=== PATIENT | female | born 1945 | race Caucasian/White ===

== ENCOUNTER 2019-12-07 16:00 | Emergency (ER) | payer MEDICARE, OTHER ==
--- NOTE | 2019-12-07 17:03 | EDM.PDOC ---
ED HPI GENERAL MEDICAL PROBLEM - General Chief Complaint: Cardiovascular Problem Stated Complaint: RAPID HEART BEATS LAST NIGHT Time Seen by Provider: 12/07/19 16:59 Source of Information: Reports: Patient, Other (Friend) History Limitations: Reports: No Limitations - History of Present Illness INITIAL COMMENTS - FREE TEXT/NARRATIVE: The patient states that she had an episode of palpitations last night and was encouraged to come to the emergency department today by a friend who told her that she should be "checked out" she is not currently complaining of palpitations or chest pain. She absolutely denies any chest pain. She states she is not on any medications and refuses to take any medications. She admits to having previous episodes of palpitations several weeks ago and episodes even before that. She denies having anxiety. No sweats. No shortness of breath. No recent fevers. Associated Symptoms: Denies: Confusion, Chest Pain, Cough, Diaphoresis, Fever/Chills, Nausea/Vomiting, Shortness of Breath, Syncope - Related Data Allergies Allergy/AdvReac Type Severity Reaction Status Date / Time codeine Allergy Nausea and Verified 12/07/19 17:05 Vomiting Sulfa (Sulfonamide Allergy Cannot Verified 12/07/19 17:05 Antibiotics) Remember tramadol Allergy Chest Verified 12/07/19 17:06 Tightness venom-honey bee Allergy Cannot Verified 12/07/19 17:05 [bee venom (honey bee)] Remember dexamethasone AdvReac Other Verified 12/07/19 17:06 Home Meds: Home Meds NK [No Known Home Meds] 12/07/19 [History] 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 Denies: Chest Pain, Dyspnea on Exertion Endocrine: Denies: Fatigue GI/Abdominal: Denies: Abdominal Pain : Reports: No Symptoms Skin: Denies: Cyanosis, Rash Neurological: Reports: No Symptoms Psychiatric: Reports: Anxiety ED EXAM, GENERAL - Physical Exam Exam: See Below Exam Limited By: No Limitations General Appearance: Alert, WD/WN Ears: Normal External Exam Throat/Mouth: Normal Inspection Head: Atraumatic, Normocephalic Neck: Normal Inspection, Supple Respiratory/Chest: No Respiratory Distress, Lungs Clear Cardiovascular: Normal Peripheral Pulses, Regular Rate, Rhythm, Other (While I was at bedside and the patient became somewhat agitated and was moving around I noted premature atrial contractions on the bedside monitor. There has been no PVCs or PACs noted on the twelve-lead EKG.) GI/Abdominal: Normal Bowel Sounds, Soft Extremities: Normal Inspection, Normal Range of Motion. No: Pedal Edema Neurological: Alert, Oriented, Normal Cognition Psychiatric: Anxious (Patient denies being anxious but had pressured speech when I first entered the room. She appears mildly agitated. I offered her medication to help her calm down and she refused.) EKG INTERPRETATION EKG Date: 12/07/19 Time: 17:45 Rhythm: NSR Rate (Beats/Min): 83 [place]: Normal P-Wave: Present ST-T: Normal Course - Vital Signs Text/Narrative:: Twelve-lead EKG, chest x-ray, all laboratory studies including troponin and electrolytes, are completely unremarkable. I feel the patient had premature atrial contraction while I was at her bedside. I have recommended she have fairly quick follow-up with primary care and consider having Holter monitoring performed. I did suggest that she have medication for anxiety and she has refused at this time. Last Recorded V/S: Last Vital Signs Temp 36.9 C 12/07/19 16:54 Pulse 88 12/07/19 18:18 Resp 16 12/07/19 18:18 BP 173/83 H 12/07/19 18:18 Pulse Ox 96 12/07/19 18:18 - Orders/Labs/Meds Orders: Active Orders 24 hr Category Date Time Status EKG Documentation Completion [RC] ASDIRECTED Care 12/07/19 17:00 Active Chest 2V [CR] Stat Exams 12/07/19 16:59 Taken EKG 12 Lead [EK] Urgent Ther 12/07/19 17:00 Ordered Labs: Laboratory Tests 12/07/19 12/07/19 12/07/19 Range/Units 17:02 17:09 17:09 WBC 6.4 (4.5-11.0) K/uL RBC 4.75 (3.30-5.50) M/uL Hgb 12.7 (12.0-15.0) g/dL Hct 40.1 (36.0-48.0) % MCV 84 (80-98) fL MCH 27 (27-31) pg MCHC 32 (32-36) % Plt Count 260 (150-400) K/uL PT (9.5-12.0) sec INR (0.80-1.20) ABG Hemoglobin 13.4 (12.0-16.0) g/dL ABG Oxyhemoglobin 74.0 % ABG Carboxyhemoglobin 1.1 (0.0-1.6) % ABG Methemoglobin 0.8 % VBG pH 7.426 (7.350-7.450) VBG pCO2 37.7 mm/Hg VBG pO2 42.5 mm/Hg VBG HCO3 24.3 mmol/L VBG Total CO2 21.6 mmol/L VBG O2 Saturation 75.4 VBG O2 Content 13.9 %vol VBG Base Excess 0.7 mm/L O2 Delivery Device Room air Sodium (140-148) mmol/L Potassium (3.6-5.2) mmol/L Chloride (100-108) mmol/L Carbon Dioxide (21-32) mmol/L Anion Gap (5.0-14.0) mmol/L BUN (7-18) mg/dL Creatinine (0.6-1.0) mg/dL Est Cr Clr Drug Dosing mL/min Estimated GFR (MDRD) (>60) Glucose (74-106) mg/dL Lactic Acid (0.4-2.0) mmol/L Calcium (8.5-10.1) mg/dL Total Bilirubin (0.2-1.0) mg/dL AST (15-37) U/L ALT (12-78) U/L Alkaline Phosphatase (46-116) U/L Troponin I < 0.017 (0.000-0.056) ng/mL Total Protein (6.4-8.2) g/dL Albumin (3.4-5.0) g/dL Globulin (2.3-3.5) g/dL Albumin/Globulin Ratio (1.2-2.2) Urine Color (YELLOW) Urine Appearance (CLEAR) Urine pH (5.0-8.0) Ur Specific [place] (1.008-1.030) Urine Protein (NEGATIVE) mg/dL Urine Glucose (UA) (NEGATIVE) mg/dL Urine Ketones (NEGATIVE) mg/dL Urine Occult Blood (NEGATIVE) Urine Nitrite (NEGATIVE) Urine Bilirubin (NEGATIVE) Urine Urobilinogen (0.2-1.0) EU/dL Ur Leukocyte Esterase (NEGATIVE) Urine RBC (0-5) Urine WBC (0-5) Ur Epithelial Cells Amorphous Sediment Urine Bacteria Urine Mucus 12/07/19 12/07/19 12/07/19 Range/Units 17:09 17:09 17:09 WBC (4.5-11.0) K/uL RBC (3.30-5.50) M/uL Hgb (12.0-15.0) g/dL Hct (36.0-48.0) % MCV (80-98) fL MCH (27-31) pg MCHC (32-36) % Plt Count (150-400) K/uL PT 10.1 (9.5-12.0) sec INR 0.93 (0.80-1.20) ABG Hemoglobin (12.0-16.0) g/dL ABG Oxyhemoglobin % ABG Carboxyhemoglobin (0.0-1.6) % ABG Methemoglobin % VBG pH (7.350-7.450) VBG pCO2 mm/Hg VBG pO2 mm/Hg VBG HCO3 mmol/L VBG Total CO2 mmol/L VBG O2 Saturation VBG O2 Content %vol VBG Base Excess mm/L O2 Delivery Device Sodium 143 (140-148) mmol/L Potassium 3.8 (3.6-5.2) mmol/L Chloride 107 (100-108) mmol/L Carbon Dioxide 26 (21-32) mmol/L Anion Gap 9.7 (5.0-14.0) mmol/L BUN 18 (7-18) mg/dL Creatinine 0.8 (0.6-1.0) mg/dL Est Cr Clr Drug Dosing 42.97 mL/min Estimated GFR (MDRD) > 60 (>60) Glucose 93 (74-106) mg/dL Lactic Acid 0.5 (0.4-2.0) mmol/L Calcium 8.7 (8.5-10.1) mg/dL Total Bilirubin 0.3 (0.2-1.0) mg/dL AST 17 (15-37) U/L ALT 48 D (12-78) U/L Alkaline Phosphatase 101 (46-116) U/L Troponin I (0.000-0.056) ng/mL Total Protein 7.5 (6.4-8.2) g/dL Albumin 3.6 (3.4-5.0) g/dL Globulin 3.9 H (2.3-3.5) g/dL Albumin/Globulin Ratio 0.9 L (1.2-2.2) Urine Color (YELLOW) Urine Appearance (CLEAR) Urine pH (5.0-8.0) Ur Specific [place] (1.008-1.030) Urine Protein (NEGATIVE) mg/dL Urine Glucose (UA) (NEGATIVE) mg/dL Urine Ketones (NEGATIVE) mg/dL Urine Occult Blood (NEGATIVE) Urine Nitrite (NEGATIVE) Urine Bilirubin (NEGATIVE) Urine Urobilinogen (0.2-1.0) EU/dL Ur Leukocyte Esterase (NEGATIVE) Urine RBC (0-5) Urine WBC (0-5) Ur Epithelial Cells Amorphous Sediment Urine Bacteria Urine Mucus 12/06/ Range/Units 17:23 WBC (4.5-11.0) K/uL RBC (3.30-5.50) M/uL Hgb (12.0-15.0) g/dL Hct (36.0-48.0) % MCV (80-98) fL MCH (27-31) pg MCHC (32-36) % Plt Count (150-400) K/uL PT (9.5-12.0) sec INR (0.80-1.20) ABG Hemoglobin (12.0-16.0) g/dL ABG Oxyhemoglobin % ABG Carboxyhemoglobin (0.0-1.6) % ABG Methemoglobin % VBG pH (7.350-7.450) VBG pCO2 mm/Hg VBG pO2 mm/Hg VBG HCO3 mmol/L VBG Total CO2 mmol/L VBG O2 Saturation VBG O2 Content %vol VBG Base Excess mm/L O2 Delivery Device Sodium (140-148) mmol/L Potassium (3.6-5.2) mmol/L Chloride (100-108) mmol/L Carbon Dioxide (21-32) mmol/L Anion Gap (5.0-14.0) mmol/L BUN (7-18) mg/dL Creatinine (0.6-1.0) mg/dL Est Cr Clr Drug Dosing mL/min Estimated GFR (MDRD) (>60) Glucose (74-106) mg/dL Lactic Acid (0.4-2.0) mmol/L Calcium (8.5-10.1) mg/dL Total Bilirubin (0.2-1.0) mg/dL AST (15-37) U/L ALT (12-78) U/L Alkaline Phosphatase (46-116) U/L Troponin I (0.000-0.056) ng/mL Total Protein (6.4-8.2) g/dL Albumin (3.4-5.0) g/dL Globulin (2.3-3.5) g/dL Albumin/Globulin Ratio (1.2-2.2) Urine Color Yellow (YELLOW) Urine Appearance Clear (CLEAR) Urine pH 6.0 (5.0-8.0) Ur Specific [place] 1.025 (1.008-1.030) Urine Protein Negative (NEGATIVE) mg/dL Urine Glucose (UA) Negative (NEGATIVE) mg/dL Urine Ketones Negative (NEGATIVE) mg/dL Urine Occult Blood Negative (NEGATIVE) Urine Nitrite Negative (NEGATIVE) Urine Bilirubin Negative (NEGATIVE) Urine Urobilinogen 0.2 (0.2-1.0) EU/dL Ur Leukocyte Esterase Negative (NEGATIVE) Urine RBC 0-5 (0-5) Urine WBC 0-5 (0-5) Ur Epithelial Cells Few Amorphous Sediment Rare Urine Bacteria Not seen Urine Mucus Not seen Departure - Departure Time of Disposition: 18:26 Disposition: Home, Self-Care 01 Clinical Impression: Palpitations, Hypertension Instructions: Palpitations, [id number] Referrals: Estelita Cabrera PA [Primary Care Provider] - Forms: ED Department Discharge Additional Instructions: See your primary care practitioner as soon as possible. If you have prolonged episode of palpitations especially if it is associated with chest pain do return here for evaluation. Sepsis Event Note (ED) - Evaluation Sepsis Screening Result: No Definite Risk - Focused Exam Vital Signs: Vital Signs Temp Pulse Resp BP Pulse Ox 12/07/19 18:18 88 16 173/83 H 96 12/07/19 17:23 86 18 187/82 H 96 12/07/19 16:54 36.9 C 88 12 187/89 H 95 12/07/19 16:31 36.9 C 88 12 187/89 H 95 - My Orders Last 24 Hours: My Active Orders 12/07/19 16:59 Chest 2V [CR] Stat 12/07/19 17:00 EKG Documentation Completion [RC] ASDIRECTED EKG 12 Lead [EK] Urgent - Assessment/Plan Last 24 Hours: My Active Orders 12/07/19 16:59 Chest 2V [CR] Stat 12/07/19 17:00 EKG Documentation Completion [RC] ASDIRECTED EKG 12 Lead [EK] Urgent
[2019-12-07 18:19] VITALS: BP 173/83; PULSE 88
--- NOTE | 2019-12-08 09:23 | CR ---
CHEST: 2 view CLINICAL HISTORY:Palpitations COMPARISON:None FINDINGS: The heart size is upper limits of normal. Pulmonary vascularity and hilar structures are normal. No infiltrate effusion or pneumothorax is seen. There is a 1 cm dense granuloma in the right lower lobe IMPRESSION: No acute cardiopulmonary process. Borderline cardiomegaly
== END 2019-12-07 19:13 | disposition home or self-care (01) ==
LOC: JP.ED 16:00
DX: I10 Essential (primary) hypertension (principal); Z88.5 Allergy status to narcotic agent; Z88.2 Allergy status to sulfonamides; Z91.030 Bee allergy status; Z88.8 Allergy status to other drugs, medicaments and biological substances
CPT/HCPCS: 36415; 71046; 71046-26; 80053; 81001; 82803; 83605; 84484; 85027; 85610; 93005; 93010; 99285-25

== ENCOUNTER 2020-12-22 02:51 | Emergency (ER) | payer BC, MEDICARE, OTHER ==
[2020-12-22] MEDS ORDERED: Lidocaine 2% Viscous Solution 15 ML Cup ONE (03:19)
[2020-12-22] MEDS ORDERED: Aluminum Hydroxide/Magnesium Hydroxide/Simethicone Susp 30 ML Cup ONE (03:20)
[2020-12-22] MEDS ORDERED: Alum Hydrox/Mag Hydrox/Simeth 15 ML, Lidocaine 2% 15 ML PO ONE ×2 (03:21)
--- NOTE | 2020-12-22 03:36 | EDM.PDOC ---
ED HPI GENERAL MEDICAL PROBLEM - General Chief Complaint: Back Pain or Injury Stated Complaint: BACK PAIN Time Seen by Provider: 12/22/20 03:20 Source of Information: Reports: Patient History Limitations: Reports: No Limitations - History of Present Illness INITIAL COMMENTS - FREE TEXT/NARRATIVE: Gloria is a 75-year-old female presenting to the ED for evaluation of severe epigastric and mid back pain that started around 7:30 PM this evening. Patient tried taking several doses of ibuprofen and [place] without any relief. She states that she has been getting these kind of attacks with increasing frequencies over the last 3 years. She is on no medications for this. She does have a history for scoliosis and has been doing yard work. Her back pain is across the upper back at the level of about T9. Epigastric pain extends up into the chest. 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 - Infectious Disease History Infectious Disease History: Reports: Chicken Pox, Measles, Mumps - Past Surgical History HEENT Surgical History: Reports: Cataract Surgery GI Surgical History: Reports: Appendectomy Female Surgical History: Reports: Breast Biopsy, Hysterectomy, Salpingo- Oophorectomy Social & Family History - Tobacco Use Tobacco Use Status *Q: Never Tobacco User - Caffeine Use Caffeine Use: Reports: Tea - Recreational Drug Use Recreational Drug Use: No ED ROS GENERAL - Review of Systems Review Of Systems: See Below Constitutional: Reports: No Symptoms HEENT: Reports: No Symptoms Respiratory: Reports: No Symptoms Cardiovascular: Reports: Chest Pain (Epigastric pain radiating into the chest) Endocrine: Reports: No Symptoms GI/Abdominal: Reports: Abdominal Pain (Epigastric pain), Nausea, Other (Increased eructation). Denies: Vomiting : Reports: No Symptoms Musculoskeletal: Reports: Back Pain Skin: Reports: No Symptoms Neurological: Reports: No Symptoms Psychiatric: Reports: Anxiety Hematologic/Lymphatic: Reports: No Symptoms Immunologic: Reports: No Symptoms ED EXAM, GENERAL - Physical Exam Exam: See Below Exam Limited By: No Limitations General Appearance: Alert, Anxious, Mild Distress Eye Exam: Bilateral Eye: EOMI, PERRL Throat/Mouth: Normal Inspection, Normal Lips, Normal Oropharynx, Normal Voice, No Airway Compromise Head: Atraumatic Neck: Normal Inspection Respiratory/Chest: No Respiratory Distress, Lungs Clear, Normal Breath Sounds Cardiovascular: Normal Peripheral Pulses, Regular Rate, Rhythm, No Murmur GI/Abdominal: Normal Bowel Sounds (Increased tympany to percussion across the upper abdomen), Soft, Distended (Mildly distended with increased tympany to percussion), Tender (Tenderness with palpation in the right upper quadrant and epigastric region). No: Guarding, Rebound Back Exam: Paraspinal Tenderness (Mid to lower thoracic spine), Other (Significant scoliosis of the spine) Neurological: Alert, Oriented, Normal Cognition, No Motor/Sensory Deficits Psychiatric: Anxious Skin Exam: Warm, Dry #1 Interpretation EKG Date: 12/22/20 Time: 03:01 Rhythm: NSR Rate (Beats/Min): 82 [place]: RAD-Right [place] Deviation P-Wave: Present QRS: Normal ST-T: Normal QT: Normal Comparison: No Change Course - Vital Signs Last Recorded V/S: Last Vital Signs Temp 36.1 C 12/22/20 03:08 Pulse 80 12/22/20 03:08 Resp 16 12/22/20 03:08 BP 209/79 H 12/22/20 03:08 Pulse Ox 95 12/22/20 03:08 - Orders/Labs/Meds Orders: Active Orders 24 hr Category Date Time Status EKG Documentation Completion [RC] ASDIRECTED Care 12/22/20 03:21 Active Abdomen 2V AP Flat Upright [CR] Stat Exams 12/22/20 03:30 Taken Abdomen Ltd [US] Stat Exams 12/22/20 03:57 Taken Piperacillin/Tazobactam [Zosyn] 3.375 gm Med 12/22/20 05:15 Active Sodium Chloride 0.9% [Normal Saline] 50 ml IV ONETIME Sodium Chloride 0.9% [Saline Flush] Med 12/22/20 03:56 Active 10 ml FLUSH ASDIRECTED PRN Saline Lock Insert [OM.PC] Routine Oth 12/22/20 03:56 Ordered EKG 12 Lead [EK] Routine Ther 12/22/20 03:21 Ordered Medication Orders Piperacillin Sod/Tazobactam (Sod 3.375 gm/ Sodium Chloride) 50 mls @ 100 mls/hr IV ONETIME TONI Sodium Chloride (Sodium Chloride 0.9% 10 Ml Syringe) 10 ml FLUSH ASDIRECTED PRN PRN Reason: Keep Vein Open Last Admin: 12/22/20 04:19 Dose: 10 ml Documented by: BILL Labs: Laboratory Tests 12/22/20 12/22/20 Range/Units 03:29 03:29 WBC 11.3 H (4.5-11.0) K/uL RBC 4.66 (3.30-5.50) M/uL Hgb 13.3 (12.0-15.0) g/dL Hct 39.2 (36.0-48.0) % MCV 84 (80-98) fL MCH 29 (27-31) pg MCHC 34 (32-36) % Plt Count 246 (150-400) K/uL Neut % (Auto) 80.7 H (36-66) % Lymph % (Auto) 12.5 L (24-44) % [place] % (Auto) 5.8 (2-6) % Eos % (Auto) 0.8 L (2-4) % Baso % (Auto) 0.2 (0-1) % Sodium 138 L (140-148) mmol/L Potassium 3.3 L (3.6-5.2) mmol/L Chloride 100 (100-108) mmol/L Carbon Dioxide 27 (21-32) mmol/L Anion Gap 14.3 H (5.0-14.0) mmol/L BUN 20 H (7-18) mg/dL Creatinine 0.8 (0.6-1.0) mg/dL Est Cr Clr Drug Dosing 42.30 mL/min Estimated GFR (MDRD) > 60 (>60) Glucose 117 H (74-106) mg/dL Calcium 8.9 (8.5-10.1) mg/dL Total Bilirubin 1.5 H D (0.2-1.0) mg/dL AST 125 H D (15-37) U/L ALT 90 H (12-78) U/L Alkaline Phosphatase 101 (46-116) U/L Troponin I < 0.017 (0.000-0.056) ng/mL Total Protein 7.3 (6.4-8.2) g/dL Albumin 3.7 (3.4-5.0) g/dL Globulin 3.6 H (2.3-3.5) g/dL Albumin/Globulin Ratio 1.0 L (1.2-2.2) Lipase 20805 H (73-393) U/L Meds: Medications Generic Name Dose Route Start Last Admin Trade Name Freq PRN Reason Stop Dose Admin Piperacillin Sod/Tazobactam 50 mls @ 100 mls/hr 12/22/20 05:15 Sod 3.375 gm/ Sodium Chloride IV ONETIME TONI Sodium Chloride 10 ml 12/22/20 03:56 12/22/20 04:19 Sodium Chloride 0.9% 10 Ml Syringe FLUSH 10 ml ASDIRECTED PRN Administration Keep Vein Open Discontinued Medications Generic Name Dose Route Start Last Admin Trade Name Freq PRN Reason Stop Dose Admin Al Hydroxide/Mg Hydroxide Confirm 12/22/20 03:20 Aluminum Hydroxide/Magnesium Hydroxide/Simethicone Susp 30 Ml Cup Administered 12/22/20 03:21 Dose 30 ml .ROUTE .STK-MED ONE Al Hydroxide/Mg Hydroxide 15 0 ml 12/22/20 03:21 12/22/20 03:25 ml/ Lidocaine HCl 15 ml PO 12/22/20 03:22 30 ml ONETIME ONE Administration Hydromorphone HCl 0.5 mg 12/22/20 03:56 12/22/20 04:19 Hydromorphone 0.5 Mg/0.5 Ml Syringe IVPUSH 12/22/20 03:57 0.5 mg ONETIME ONE Administration Lidocaine HCl Confirm 12/22/20 03:19 Lidocaine 2% Viscous Solution 15 Ml Cup Administered 12/22/20 03:20 Dose 15 ml .ROUTE .STK-MED ONE Ondansetron HCl 4 mg 12/22/20 03:56 12/22/20 04:15 Ondansetron 4 Mg/2 Ml Sdv IVPUSH 12/22/20 03:57 4 mg ONETIME ONE Administration - Radiology Interpretation Free Text/Narrative:: Ultrasound of the right upper quadrant shows a packed gallbladder with stones. The gallbladder wall thickening at 0.3 cm without pericystic fluid. The common bile duct is dilated to 10.3 mm suggesting choledocholithiasis. - Re-Assessments/Exams Free Text/Narrative Re-Assessment/Exam: 12/22/20 05:24 I reviewed the patient's labs showing a leukocyte count of 11.3 with 80% neutrophils. Her hemoglobin is 13.3 with a hematocrit of 39.2 and a platelet count of 246,000. Her comprehensive metabolic panel is significant for sodium 138, potassium 3.3, chloride 100, bicarbonate of 27, BUN of 20 with a creatinine of 0.8 and a glucose of 117. Bilirubin is 1.5 with an AST of 125, ALT of 90, and an alkaline phosphatase of 101. The troponin is negative at less than 0.017. Her lipase is 42,000. Ultrasound was ordered and shows a packed gallbladder with slightly thickened wall at 0.3 cm. There is no pericystic fluid to suggest an acute cholecystitis. The common bile duct is dilated at 10.3 mm suggesting choledocholithiasis although a stone was not visualized directly in the common bile duct. Given the dilation of the common duct and the elevation of the lipase, this is likely a gallstone pancreatitis. I discussed the case with Dr. Cantu who feels the patient needs to be transferred elsewhere where they can do an ERCP or MRCP. I discussed the case with Dr. Lynne from [facility] who accepts the patient in transfer for admission to the hospitalist service and they will consult surgery. Patient has received Dilaudid 0.5 mg IV, Zosyn 3.375 g IV and Zofran 4 mg IV. She is currently doing much better with the pain and nausea. Departure - Departure Time of Disposition: 05:23 Disposition: DC/Tfer to Acute Hospital 02 Clinical Impression: Gallstone pancreatitis, Cholelithiasis with choledocholithiasis - Discharge Information Referrals: Estelita Cabrera PA [Primary Care Provider] - Forms: ED Department Discharge Sepsis Event Note (ED) - Evaluation Sepsis Screening Result: No Definite Risk - Focused Exam Vital Signs: Vital Signs Temp Pulse Resp BP Pulse Ox 12/22/20 03:08 36.1 C 80 16 209/79 H 95 - Problem List & Annotations (1) Gallstone pancreatitis SNOMED Code(s): 16602073 Code(s): K85.10 - BILIARY ACUTE PANCREATITIS WITHOUT NECROSIS OR INFECTION Status: Acute Priority: High Current Visit: Yes (2) Cholelithiasis with choledocholithiasis SNOMED Code(s): 980311602, 518629550, 824223885 Code(s): K80.70 - CALCULUS OF GB AND BILE DUCT W/O CHOLECYST W/O OBSTRUCTION Status: Acute Priority: High Current Visit: Yes - Problem List Review Problem List Initiated/Reviewed/Updated: Yes - My Orders Last 24 Hours: My Active Orders 12/22/20 03:21 EKG Documentation Completion [RC] ASDIRECTED EKG 12 Lead [EK] Routine 12/22/20 03:30 Abdomen 2V AP Flat Upright [CR] Stat 12/22/20 03:56 Sodium Chloride 0.9% [Saline Flush] 10 ml FLUSH ASDIRECTED PRN Saline Lock Insert [OM.PC] Routine 12/22/20 03:57 Abdomen Ltd [US] Stat 12/22/20 05:15 Piperacillin/Tazobactam [Zosyn] 3.375 gm Sodium Chloride 0.9% [Normal Saline] 50 ml IV ONETIME - Assessment/Plan Last 24 Hours: My Active Orders 12/22/20 03:21 EKG Documentation Completion [RC] ASDIRECTED EKG 12 Lead [EK] Routine 12/22/20 03:30 Abdomen 2V AP Flat Upright [CR] Stat 12/22/20 03:56 Sodium Chloride 0.9% [Saline Flush] 10 ml FLUSH ASDIRECTED PRN Saline Lock Insert [OM.PC] Routine 12/22/20 03:57 Abdomen Ltd [US] Stat 12/22/20 05:15 Piperacillin/Tazobactam [Zosyn] 3.375 gm Sodium Chloride 0.9% [Normal Saline] 50 ml IV ONETIME
[2020-12-22] MEDS ORDERED: Sodium Chloride 0.9% 10 ML Syringe FLUSH PRN (03:56)
[2020-12-22] MEDS ORDERED: HYDROmorphone 0.5 MG/0.5 ML Syringe IVPUSH ONE (03:56)
[2020-12-22] MEDS ORDERED: Ondansetron 4 MG/2 ML SDV IVPUSH ONE (03:56)
[2020-12-22] MEDS ORDERED: Piperacillin/Tazobactam 3.375 GM in Sodium Chloride 0.9% 50 ML IV SCH (05:15)
[2020-12-22] MEDS ORDERED: Cephalexin 250 MG Cap PO ONE (05:44)
[2020-12-22 06:04] VITALS: BP 162/82; PULSE 78
--- NOTE | 2020-12-22 06:33 | CRLUS ---
For Patients: As a result of the Century Cures Act, medical imaging exams and procedure reports are released immediately into your electronic medical record. You may view this report before your referring provider. If you have questions, please contact your health care provider. INDICATION: Acute pancreatitis TECHNIQUE: Ultrasound abdomen limited. Sonographic images of the right upper quadrant were obtained using hines-scale and color Doppler images. COMPARISON: None FINDINGS: Liver: Normal in size and echotexture. No masses. No intrahepatic biliary dilatation. Gallbladder: Multiple gallstones with borderline gallbladder wall thickening. Negative sonographic Webb sign. Common bile duct: 12 mm. Dilated with the distal duct obscured by bowel gas. Pancreas: Partially obscured by bowel gas without peripancreatic fluid collection. Right kidney: Normal in size. Normal echotexture and cortex. No masses, stones, or hydronephrosis. Vasculature: Proximal abdominal aorta and IVC are normal. IMPRESSION: 1. Cholelithiasis without sonographic evidence of cholecystitis. 2. Dilated common duct measuring 12 millimeters with distal duct obscured by bowel gas. 3. No peripancreatic fluid collections seen. Dictated by Jose Antonio Renee MD @ 12/22/2020 6:32:[address] Jose Antonio Renee @ Dec 22 2020 6:32AM
--- NOTE | 2020-12-23 12:34 | CR ---
Abdomen 2V AP Flat Upright CLINICAL HISTORY: Epigastric and back pain FINDINGS: None IMPRESSION: No free air is identified. Small intestinal gas pattern is nonacute. There is moderate retained stool throughout the colon. There are numerous granulomata in the spleen. There are some calcified nodes in the chest. Impression: Nonacute intestinal gas pattern Fecal retention Previous granulomatous exposure
== END 2020-12-22 05:58 ==
LOC: JP.ED 02:51
DX: K80.70 Calculus of gallbladder and bile duct without cholecystitis without obstruction (principal); K85.10 Biliary acute pancreatitis without necrosis or infection; Z91.030 Bee allergy status; Z88.5 Allergy status to narcotic agent; Z88.2 Allergy status to sulfonamides
CPT/HCPCS: 36415; 74019; 76705; 80053; 83690; 84484; 85025; 93005; 96365; 96375; 99285; A9270; J1170; J2405; J2543

== ENCOUNTER 2022-12-13 10:28 | Emergency (ER) | payer MEDICARE ==
[2022-12-13] MEDS ORDERED: Ondansetron 4 MG Tab.DIS PO ONE (11:09)
[2022-12-13] MEDS ORDERED: Meclizine 25 MG Tab PO ONE (11:09)
[2022-12-13] MEDS ORDERED: Sodium Chloride 0.9% 10 ML Syringe FLUSH PRN (12:36)
[2022-12-13] MEDS ORDERED: Sodium Chloride 0.9% 1,000 ML IV ONE (12:36)
[2022-12-13 12:48] LABS: BASOPHILS ABSOLUTE AUTO 0.03 K/uL (0.00-0.10); BASOPHILS PERCENT AUTO 0.4 % (0.1-1.3); EOSINOPHILS ABSOLUTE AUTO 0.04 K/uL (0.00-0.40); EOSINOPHILS PERCENT AUTO 0.5 % (0.0-5.4); HEMATOCRIT 40.1 % (34.3-46.0); HEMOGLOBIN 13.4 g/dL (11.2-15.5); IMMATURE GRAN PERCENT AUTO 0.1 % (0.0-0.7); LYMPHOCYTES PERCENT AUTO 14.6 % (11.4-47.7); MEAN CORPUSCULAR HEMOGLOBIN 28.2 pg (31.6-35.5); MEAN CORPUSCULAR HGB CONC 33.4 g/dL (31.6-35.5); MEAN CORPUSCULAR VOLUME 84.2 fL (81.4-99.0); MONOCYTES ABSOLUTE AUTO 0.33 K/uL (0.20-0.90); NEUTROPHILS PERCENT AUTO 80.4 % (40.0-78.1); PLATELET COUNT,PLT 257 K/uL (130-375); RED BLOOD CELL COUNT 4.76 M/uL (3.77-5.24); WHITE BLOOD CELL COUNT,WBC 8.2 K/uL (3.2-11.0)
[2022-12-13 12:50] LABS: IMMATURE GRAN ABSOLUTE AUTO 0.01 K/uL (0.00-0.23)
[2022-12-13 13:03] LABS: ANION GAP 10.7 mmol/L (5.0-14.0); CALCIUM 9.4 mg/dL (8.5-10.1); CREATININE 0.7 mg/dL (0.6-1.0); EST CRCL DRUG DOSING (CG) 46.81 mL/min; POTASSIUM,K 3.7 mmol/L (3.6-5.2)
[2022-12-13] MEDS ORDERED: methylPREDNISolone Sodium Succinate 125 MG/2 ML SDV IVPUSH ONE (14:04)
[2022-12-13 14:53] VITALS: BP 176/85; PULSE 72
== END 2022-12-13 15:09 | disposition home or self-care (01) ==
LOC: JP.ED 10:28
DX: H81.10 Benign paroxysmal vertigo, unspecified ear (principal); Z88.8 Allergy status to other drugs, medicaments and biological substances; Z88.1 Allergy status to other antibiotic agents; Z88.2 Allergy status to sulfonamides; Z88.5 Allergy status to narcotic agent; Z91.030 Bee allergy status
CPT/HCPCS: 36415; 80048; 85025; 96361; 96374; 99284; A9270; J2930; J7030; Q0162

== ENCOUNTER 2023-10-21 15:03 | Emergency (ER) | payer MEDICARE ==
[2023-10-21 16:26] LABS: BASOPHILS PERCENT AUTO 0.3 % (0.1-1.3); EOSINOPHILS ABSOLUTE AUTO 0.15 K/uL (0.00-0.40); EOSINOPHILS PERCENT AUTO 2.5 % (0.0-5.4); HEMATOCRIT 40.1 % (34.3-46.0); HEMOGLOBIN 13.6 g/dL (11.2-15.5); IMMATURE GRAN PERCENT AUTO 0.2 % (0.0-0.7); LYMPHOCYTES ABSOLUTE AUTO 1.93 K/uL (0.8-3.3); LYMPHOCYTES PERCENT AUTO 32.2 % (11.4-47.7); MEAN CORPUSCULAR HEMOGLOBIN 28.2 pg (31.6-35.5); MEAN CORPUSCULAR HGB CONC 33.9 g/dL (31.6-35.5); MEAN CORPUSCULAR VOLUME 83.2 fL (81.4-99.0); MONOCYTES ABSOLUTE AUTO 0.42 K/uL (0.20-0.90); NEUTROPHILS ABSOLUTE AUTO 3.47 K/uL (1.0-7.6); NEUTROPHILS PERCENT AUTO 57.8 % (40.0-78.1); PLATELET COUNT,PLT 236 K/uL (130-375); RED BLOOD CELL COUNT 4.82 M/uL (3.77-5.24)
[2023-10-21 16:27] LABS: BASOPHILS ABSOLUTE AUTO 0.02 K/uL (0.00-0.10); IMMATURE GRAN ABSOLUTE AUTO 0.01 K/uL (0.00-0.23)
[2023-10-21] MEDS: Sodium Chloride 0.9% 500 ML IV ONE (16:45)
[2023-10-21] MEDS: cloNIDine 0.1 MG Tab PO ONE (16:45)
[2023-10-21 17:01] LABS: A/G RATIO 0.9 (1.2-2.2); ALANINE AMINOTRANSFERASE,ALT 29 U/L (12-78); ALBUMIN 3.8 g/dL (3.4-5.0); ALKALINE PHOSPHATASE 84 U/L (46-116); ASPARTATE AMNIOTRANSFERASE,AST 16 U/L (15-37); BILIRUBIN TOTAL 0.4 mg/dL (0.2-1.0); BLOOD UREA NITROGEN,BUN 16 mg/dL (7-18); CALCIUM 9.7 mg/dL (8.5-10.1); CARBON DIOXIDE,CO2 27 mmol/L (21-32); CHLORIDE,CL 102 mmol/L (100-108); CREATININE 0.7 mg/dL (0.6-1.0); ESTIMATED GFR 87 mL/min (>60); GLUCOSE RANDOM 90 mg/dL (74-106); POTASSIUM,K 3.8 mmol/L (3.6-5.2); PROTEIN TOTAL,TP 8.2 g/dL (6.4-8.2); SODIUM,NA 139 mmol/L (140-148); TROPONIN I HIGH SENSITIVITY 7.9 pg/mL (<=60.3)
[2023-10-21 17:02] LABS: ANION GAP 13.8 mmol/L (5.0-14.0)
[2023-10-21 18:04] VITALS: BP 111/73
[2023-10-21] MEDS: Metoprolol Succinate 25 MG Tab.ER PO ONE (18:06)
[2023-10-21 18:07] VITALS: PULSE 71
== END 2023-10-21 18:21 | disposition home or self-care (01) ==
LOC: JP.ED 15:03
DX: I10 Essential (primary) hypertension (principal); Z88.8 Allergy status to other drugs, medicaments and biological substances; Z88.6 Allergy status to analgesic agent; Z91.030 Bee allergy status
CPT/HCPCS: 36415; 71045; 80053; 84443; 84484; 85025; 93005; 99284; A9270; J7030; 93010; 99283

== ENCOUNTER 2023-12-06 13:15 | Emergency (ER) | payer MEDICARE ==
[2023-12-06] MEDS ORDERED: Morphine 4 MG/ML Syringe IVPUSH PRN (13:54)
[2023-12-06 13:59] LABS: BASOPHILS ABSOLUTE AUTO 0.03 K/uL (0.00-0.10); BASOPHILS PERCENT AUTO 0.4 % (0.1-1.3); EOSINOPHILS PERCENT AUTO 1.2 % (0.0-5.4); HEMATOCRIT 42.4 % (34.3-46.0); HEMOGLOBIN 14.3 g/dL (11.2-15.5); IMMATURE GRAN PERCENT AUTO 0.2 % (0.0-0.7); LYMPHOCYTES ABSOLUTE AUTO 2.58 K/uL (0.8-3.3); MEAN CORPUSCULAR HEMOGLOBIN 28.6 pg (31.6-35.5); MEAN CORPUSCULAR HGB CONC 33.7 g/dL (31.6-35.5); MEAN CORPUSCULAR VOLUME 84.8 fL (81.4-99.0); MONOCYTES ABSOLUTE AUTO 0.69 K/uL (0.20-0.90); MONOCYTES PERCENT AUTO 8.3 % (3.3-12.6); NEUTROPHILS ABSOLUTE AUTO 4.89 K/uL (1.0-7.6); NEUTROPHILS PERCENT AUTO 58.9 % (40.0-78.1); PLATELET COUNT,PLT 255 K/uL (130-375); WHITE BLOOD CELL COUNT,WBC 8.3 K/uL (3.2-11.0)
[2023-12-06 14:02] LABS: IMMATURE GRAN ABSOLUTE AUTO 0.02 K/uL (0.00-0.23)
[2023-12-06 14:12] LABS: CALCIUM 9.8 mg/dL (8.5-10.1); CREATININE 0.8 mg/dL (0.6-1.0); EST CRCL DRUG DOSING (CG) 40.29 mL/min; POTASSIUM,K 4.8 mmol/L (3.6-5.2); TROPONIN I HIGH SENSITIVITY 8.8 pg/mL (<=60.3)
[2023-12-06 14:14] LABS: ANION GAP 12.8 mmol/L (5.0-14.0)
[2023-12-06] MEDS ORDERED: Nitroglycerin 0.4 MG Tab.SL SL PRN (14:17)
[2023-12-06] MEDS: Aspirin 81 MG Tab.Chew PO ONE (14:23)
[2023-12-06 14:25] VITALS: BP 156/79; PULSE 76
== END 2023-12-06 15:15 | disposition home or self-care (01) ==
LOC: JP.ED 13:15
DX: R07.89 Other chest pain (principal); I10 Essential (primary) hypertension; Z90.49 Acquired absence of other specified parts of digestive tract; Z90.710 Acquired absence of both cervix and uterus; Z79.899 Other long term (current) drug therapy; Z88.5 Allergy status to narcotic agent; Z88.2 Allergy status to sulfonamides; Z91.030 Bee allergy status; Z88.8 Allergy status to other drugs, medicaments and biological substances
CPT/HCPCS: 36415; 71045; 80048; 84484; 85025; 93005; 93010; 99284; 99285; A9270

== ENCOUNTER 2024-01-11 14:24 | Emergency (ER) | payer MEDICARE ==
[2024-01-11] MEDS: Diltiazem 25 MG/5 ML SDV IVPUSH ONE (14:52)
[2024-01-11] MEDS: Diltiazem 25 MG/5 ML SDV ONE (14:52)
[2024-01-11 14:54] LABS: BASOPHILS ABSOLUTE AUTO 0.03 K/uL (0.00-0.10); BASOPHILS PERCENT AUTO 0.4 % (0.1-1.3); EOSINOPHILS PERCENT AUTO 1.3 % (0.0-5.4); HEMATOCRIT 35.3 % (34.3-46.0); IMMATURE GRAN ABSOLUTE AUTO 0.03 K/uL (0.00-0.23); IMMATURE GRAN PERCENT AUTO 0.4 % (0.0-0.7); LYMPHOCYTES ABSOLUTE AUTO 2.15 K/uL (0.8-3.3); LYMPHOCYTES PERCENT AUTO 28.1 % (11.4-47.7); MEAN CORPUSCULAR HEMOGLOBIN 28.6 pg (31.6-35.5); MONOCYTES PERCENT AUTO 6.5 % (3.3-12.6); NEUTROPHILS ABSOLUTE AUTO 4.84 K/uL (1.0-7.6); NEUTROPHILS PERCENT AUTO 63.3 % (40.0-78.1); PLATELET COUNT,PLT 325 K/uL (130-375); WHITE BLOOD CELL COUNT,WBC 7.7 K/uL (3.2-11.0)
[2024-01-11 15:06] LABS: BLOOD UREA NITROGEN,BUN 12 mg/dL (7-18); CALCIUM 9.4 mg/dL (8.5-10.1); CARBON DIOXIDE,CO2 25 mmol/L (21-32); CHLORIDE,CL 102 mmol/L (100-108); CREATININE 0.8 mg/dL (0.6-1.0); ESTIMATED GFR 74 mL/min (>60); GLUCOSE RANDOM 110 mg/dL (74-106); SODIUM,NA 138 mmol/L (140-148); TROPONIN I HIGH SENSITIVITY 19.1 pg/mL (<=60.3)
[2024-01-11] MEDS ORDERED: Potassium Chloride 20 MEQ in Premix Bag 1 BAG IV ONE (15:40)
[2024-01-11] MEDS ORDERED: Potassium Chloride 20 MEQ Tab.ER PO ONE (15:40)
[2024-01-11] MEDS: Diltiazem 100 MG in Sodium Chloride 0.9% 100 ML IV SCH (16:02)
[2024-01-11] MEDS ORDERED: Sodium Chloride 0.9% 10 ML Syringe FLUSH PRN (16:59)
[2024-01-11] MEDS ORDERED: Acetaminophen 325 MG Tab PO PRN (16:59)
[2024-01-11] MEDS ORDERED: Diltiazem 100 MG in Sodium Chloride 0.9% 100 ML IV SCH (16:59)
[2024-01-11] MEDS ORDERED: Polyethylene Glycol 3350 Powder 17 GM Packet PO PRN (16:59)
[2024-01-11 17:19] VITALS: BP 133/77; PULSE 82
[2024-01-11] MEDS: Diltiazem 180 MG Cap.CD PO SCH (17:30)
[2024-01-11] MEDS: Metoprolol Succinate 25 MG Tab.ER PO SCH (17:30)
[2024-01-11] MEDS: Enoxaparin 40 MG/0.4 ML Syringe SUBCUT SCH (17:30)
[2024-01-11] MEDS ORDERED: Ticagrelor 90 MG Tab PO SCH (21:00)
[2024-01-11] MEDS ORDERED: atorvaSTATin 20 MG Tab PO SCH (21:00)
[2024-01-12] MEDS ORDERED: Aspirin 81 MG Tab.Chew PO SCH (09:00)
== END 2024-01-11 18:50 | disposition home or self-care (01) ==
LOC: JP.ED 14:24 → JP.ICU 16:05 → UNDOADMIN 16:05
DX: I48.91 Unspecified atrial fibrillation (principal); I10 Essential (primary) hypertension; Z90.49 Acquired absence of other specified parts of digestive tract; Z90.710 Acquired absence of both cervix and uterus; Z79.82 Long term (current) use of aspirin; Z79.899 Other long term (current) drug therapy; Z88.0 Allergy status to penicillin; Z88.5 Allergy status to narcotic agent; Z88.2 Allergy status to sulfonamides; Z88.8 Allergy status to other drugs, medicaments and biological substances; Z91.030 Bee allergy status; Z88.4 Allergy status to anesthetic agent; Z91.048 Other nonmedicinal substance allergy status
CPT/HCPCS: 36415; 80048; 83735; 84484; 85025; 93005; 96374; 96376; 99285; J3490